=== PATIENT | male | born 1945 | race Two or more races ===

== ENCOUNTER 2024-01-11 15:54 | Inpatient (IN) | payer OTHER ==
[~2024-01-11] VITALS: Ht 180.3 cm; Wt 92.5 kg
[2024-01-11] MEDS ORDERED: NITROGLYCERIN 0.4 MG SL TAB SL PRN (16:30)
[2024-01-11] MEDS ORDERED: MORPHINE SULFATE INJ 2 MG/ml SYRG IV PRN (16:30)
[2024-01-11] MEDS ORDERED: ONDANSETRON HCL 4 MG/2 ML VIAL IV PRN (16:30)
[2024-01-11] MEDS ORDERED: ACETAMINOPHEN 325 MG TAB PO PRN (16:30)
[2024-01-11 17:34] VITALS: BP 153/95; PULSE 91; RESP 18; TEMP 98.1; O2SAT 99
[2024-01-11 17:46] VITALS: BP 153/95; PULSE 91; RESP 16; TEMP 98.1; O2SAT 99
[2024-01-11 18:15] VITALS: PULSE 60; RESP 18; O2SAT 100
[2024-01-11 20:00] VITALS: BP 131/78; PULSE 69; PULSE 92; RESP 20; TEMP 97.8; O2SAT 95
[2024-01-11 21:00] VITALS: BP 131/78; PULSE 69; RESP 20; TEMP 97.8; O2SAT 95
[2024-01-11] MEDS: HYDROcodone-ACET 5/325MG TAB PO PRN (22:51)
[2024-01-11] MEDS: SODIUM CHLORIDE 0.9% 1,000 ML IV SCH (22:52)
[2024-01-12] VITALS (11 sets, daily range): BP systolic 109–152; BP diastolic 72–100; PULSE 20–102; RESP 12–20; TEMP 96.4–98; O2SAT 93–97
[2024-01-12 07:22] LABS: Basophils # (auto) 0 10 ^3/uL (0-0.2); Basophils % (auto) 0.4 % (0.0-2.0); Eosinophils # (auto) 0.2 10 ^3/uL (0-0.8); Hematocrit 42.4 % (41.0-53.0); Lymphocytes # (auto) 1.5 10 ^3/uL (0.4-5.4); Lymphocytes % (auto) 27.7 % (10.0-50.0); Mean Corpuscular Hemoglobin 30.5 pg (28.0-32.0); Mean Corpuscular Volume 92.4 fL (80.0-100.0); Monocytes # (auto) 0.5 10 ^3/uL (0-1.3); Monocytes % (auto) 9.6 % (0.0-12.0); Neutrophils # (auto) 3.1 10 ^3/uL (1.6-8.6); Neutrophils % (auto) 58.3 % (37.0-80.0); Red Blood Cells 4.59 10^6/uL (4.5-5.90); Red Cell Distribution Width 12.8 % (11.8-14.3); White Blood Cell 5.3 10^3/uL (4.4-10.8)
[2024-01-12 07:38] LABS: INR 1.13 (0.9-1.15); Prothrombin Time 11.8 sec (9.3-11.8)
[2024-01-12 07:40] LABS: Albumin 4.2 g/dL (3.2-4.8); Alkaline Phosphatase 51 U/L (46-116); Aspartate Aminotransferase 17 U/L (13-40); Bilirubin, Total 1.1 mg/dL (0.2-1.0); Blood Urea Nitrogen 17 mg/dL (9-23); Chloride 108 mmol/L (98-107); Glucose 87 mg/dL (74-106); Sodium 139 mmol/L (136-145); Total Protein 6.4 g/dL (5.7-8.2)
[2024-01-12 07:41] LABS: Anion Gap 6 (5-15); Calcium 9.1 mg/dL (8.5-10.1); Carbon Dioxide 25 mmol/L (20-30)
[2024-01-12 07:49] LABS: Alanine Aminotransferase < 9 U/L (7-40)
[2024-01-12] MEDS: LIDOCAINE 2%HCL (LOCAL ANESTH.) INJ 20ML MDV ONE ×2 (08:44→14:00)
[2024-01-12] MEDS: IODIXANOL 320MG/ML 100ML BTL IV ONE ×2 (08:44→14:00)
[2024-01-12] MEDS: MIDAZOLAM HCL 2MG/2ML 2ml VIAL (1mg/ml) ONE (09:04)
[2024-01-12] MEDS: VERAPAMIL 2.5MG/ML INJ 2ML VIAL IV ONE ×2 (09:04→14:00)
[2024-01-12] MEDS: fentaNYL CITRATE 100 MCG/2 ML VL ONE (09:04)
[2024-01-12] MEDS: HEPARIN SODIUM (PORCINE) 5000 UNITS/ML 1ML VIAL ONE ×2 (09:05→14:00)
[2024-01-12] MEDS: ANGIOMAX 250 MG VIAL IV ONE ×2 (09:15→14:51)
[2024-01-12] MEDS: SODIUM CHL 0.9% 0 ML ONE (09:15)
[2024-01-12] MEDS ORDERED: ASPirin 81 mg TAB PO SCH (10:00)
[2024-01-12] MEDS: ENOXAPARIN SOD 40 MG/0.4 ML SYRINGE SC SCH (10:00)
[2024-01-12] MEDS: SODIUM CHL 0.9% 50 ML ONE (14:50)
[2024-01-12] MEDS: ASPirin 325 MG TAB ONE (14:51)
[2024-01-12] MEDS: ATROPINE SULF 1 MG/10ml SYR ONE (14:51)
[2024-01-12] MEDS: CLOPIDOGREL BISULFATE 75 MG TAB ONE ×2 (14:51→14:52)
[2024-01-12] MEDS: MORPHINE SULFATE INJ 2 MG/ml SYRG IV PRN (21:20)
[2024-01-12] MEDS: ATORVASTATIN 20 MG TAB PO SCH (21:20)
[2024-01-12] MEDS: CARVEDILOL 3.125 MG TAB PO SCH (21:21)
[2024-01-13 01:00] VITALS: BP 115/89; PULSE 101; RESP 20; TEMP 97.8; O2SAT 96
[2024-01-13 05:00] VITALS: BP 119/66; PULSE 64; RESP 20; TEMP 97.5; O2SAT 96
[2024-01-13 08:00] VITALS: PULSE 72; RESP 18
[2024-01-13 08:35] VITALS: BP 116/72; PULSE 88; RESP 20; TEMP 97.7; O2SAT 94
[2024-01-13] MEDS: ASPirin 81 mg TAB PO SCH (10:24)
[2024-01-13] MEDS: LISINOPRIL 5 MG TAB PO SCH (10:24)
[2024-01-13] MEDS: CLOPIDOGREL BISULFATE 75 MG TAB PO SCH (10:24)
[2024-01-13 12:40] VITALS: BP 125/68; PULSE 64; RESP 20; TEMP 97.9; O2SAT 96
[2024-01-13] MEDS ORDERED: ASPI-325 PO (14:15)
[2024-01-13] MEDS ORDERED: CARV-214 PO (14:15)
[2024-01-13] MEDS ORDERED: LISI-275 PO (14:15)
[2024-01-13] MEDS ORDERED: NITR0.4S29 SL (14:15)
[2024-01-13] MEDS ORDERED: ATOR20TA50 PO (14:15)
[2024-01-13] MEDS ORDERED: CLOP75TA70 PO (14:15)
[2024-01-13 14:37] VITALS: BP 116/72; PULSE 88; TEMP 36.6
== END 2024-01-13 16:07 | disposition home or self-care (01) | DRG 321 ==
LOC: TELE-WESTW 16:28
PROVIDERS: ADMIT Internal Medicine; ATTEND Internal Medicine
PROC: 027034Z Dilation of Coronary Artery, One Artery with Drug-eluting Intraluminal Device, Percutaneous Approach (ICD-10-PCS; principal; 2024-01-12)
PROC: 4A023N7 Measurement of Cardiac Sampling and Pressure, Left Heart, Percutaneous Approach (ICD-10-PCS; 2024-01-12)
PROC: B211YZZ Fluoroscopy of Multiple Coronary Arteries using Other Contrast (ICD-10-PCS; 2024-01-12)
PROC: B215YZZ Fluoroscopy of Left Heart using Other Contrast (ICD-10-PCS; 2024-01-12)
PROC: 4A033BC Measurement of Arterial Pressure, Coronary, Percutaneous Approach (ICD-10-PCS; 2024-01-12)
DX: I25.110 Atherosclerotic heart disease of native coronary artery with unstable angina pectoris (principal); J96.00 Acute respiratory failure, unspecified whether with hypoxia or hypercapnia; Z96.659 Presence of unspecified artificial knee joint
CPT/HCPCS: 36415; 71045; 80053; 84484; 85025; 85610; 85730; 86850; 86900; 86901; 92928; 93005; 93458; 93571; 97163; 99152; G0378; J2250; Q9967

== ENCOUNTER 2024-05-17 06:55 | Day surgery (SDC) | payer OTHER ==
[~2024-05-17] VITALS: Ht 180.3 cm; Wt 86.2 kg
[~2024-05-17 06:55] MED LIST: ASPI-325 PO; ATEN50TA PO; ATOR20TA50 PO; BUDE1AER6 IN; CLOP75TA70 PO; DOXY100C4 PO; NITR0.4S29 SL; TRAZ-228 PO; [UNRECOGNIZED DRUG - CODE] EX
[2024-05-17] MEDS ORDERED: IODIXANOL 320MG/ML 100ML BTL IV ONE ×2 (07:32→09:46)
[2024-05-17] MEDS ORDERED: HEPARIN IN NS 1000Units/500mL 1,500 ML ONE (07:32)
[2024-05-17] MEDS ORDERED: FAMOTIDINE (10MG/ML) 2ML VL IV ONE (08:20)
[2024-05-17] MEDS ORDERED: HEPARIN SODIUM (PORCINE) 5000 UNITS/ML 1ML VIAL ONE (08:51)
[2024-05-17] MEDS ORDERED: MIDAZOLAM HCL 2MG/2ML 2ml VIAL (1mg/ml) ONE (08:51)
[2024-05-17] MEDS ORDERED: ANGIOMAX 250 MG VIAL IV ONE (08:51)
[2024-05-17] MEDS ORDERED: VERAPAMIL 2.5MG/ML INJ 2ML VIAL IV ONE (08:51)
[2024-05-17] MEDS ORDERED: fentaNYL CITRATE 100 MCG/2 ML VL ONE (08:51)
[2024-05-17] MEDS ORDERED: SODIUM CHL 0.9% 50 ML ONE (08:52)
[2024-05-17] MEDS ORDERED: LIDOCAINE 2%HCL (LOCAL ANESTH.) INJ 20ML MDV ONE (09:15)
[2024-05-17] MEDS ORDERED: CLOPIDOGREL BISULFATE 75 MG TAB ONE (09:54)
[2024-05-17 10:03] VITALS: BP 118/80; PULSE 55; RESP 15; O2SAT 93
[2024-05-17 10:19] VITALS: BP 137/77; PULSE 55; RESP 15; O2SAT 96
[2024-05-17 10:48] VITALS: BP 121/62; PULSE 54; RESP 13; O2SAT 96
[2024-05-17 11:19] VITALS: BP 96/66; PULSE 58; RESP 13; O2SAT 95
[2024-05-17 11:45] VITALS: PULSE 58; RESP 24; O2SAT 95
== END 2024-05-17 12:02 | disposition home or self-care (01) ==
LOC: CATH 06:55
PROVIDERS: ATTEND Internal Medicine
DX: I25.110 Atherosclerotic heart disease of native coronary artery with unstable angina pectoris (principal); Z79.82 Long term (current) use of aspirin; Z79.01 Long term (current) use of anticoagulants; Z82.49 Family history of ischemic heart disease and other diseases of the circulatory system; Z98.890 Other specified postprocedural states; Z96.659 Presence of unspecified artificial knee joint
CPT/HCPCS: 93458; C1725; C1769; C1874; C1887; C1894; C9600; J0583; J1644; J2250; J3010; J7030; Q9967; 99152; 99153; J3490

== ENCOUNTER 2025-05-02 07:34 | Day surgery (SDC) | payer OTHER ==
[~2025-05-02] VITALS: Ht 180.3 cm; Wt 88.5 kg
[2025-05-02] VITALS (8 sets, daily range): BP systolic 115–132; BP diastolic 67–96; PULSE 59–87; RESP 16–20; TEMP 97.7; O2SAT 92–97
[~2025-05-02 07:34] MED LIST changes: +CLOPIDOGREL BISULFATE 75 MG TAB PO SCH; +FLUT0.05 NAS; +FLUTICASONE PROP NASAL SPR 0.05 % (50MCG) 16GM EACHNOSTRI SCH; +LISI-275 PO; +LISINOPRIL 5 MG TAB PO SCH
[2025-05-02] MEDS: fentaNYL CITRATE 100 MCG/2 ML VL ONE (11:49)
[2025-05-02] MEDS: HEPARIN SODIUM (PORCINE) 5000 UNITS/ML 1ML VIAL ONE (11:49)
[2025-05-02] MEDS: VERAPAMIL 2.5MG/ML INJ 2ML VIAL IV ONE (11:49)
[2025-05-02] MEDS: ANGIOMAX 250 MG VIAL IV ONE (11:49)
[2025-05-02] MEDS: MIDAZOLAM HCL 2MG/2ML 2ml VIAL (1mg/ml) ONE (11:49)
[2025-05-02] MEDS: IODIXANOL 320MG/ML 100ML BTL IV ONE ×2 (11:50→12:01)
[2025-05-02] MEDS: SODIUM CHL 0.9% 0 ML ONE (11:50)
[2025-05-02] MEDS: LIDOCAINE 2%HCL (LOCAL ANESTH.) INJ 20ML MDV ONE (11:50)
--- NOTE | 2025-05-02 12:32 | DVHOP2 ---
Operative Report - 2 Report Details Date: 05/02/25 Preop Diagnosis: CAD Postop Diagnosis: Mild cardiomyopathy. Normal coronary arteries. Surgeon: Hilary Laughlin MD Anesthesiologist: Conscious sedation Anesthesia: Mac, Local Consent: The patient was informed of the risks and benefits of the procedure. These include but are not limited to complications of anesthesia, postoperative infection, incomplete relief of symptoms, recurrence of symptoms, damage to blood vessels, nerves and tendons, deep venous thrombosis, pulmonary embolism and possible need for repeat surgery in the future. Complications: No complications Findings: No significant CAD. Indications for Surgery: Chest pain Name of Procedure Performed Left heart catheterization. Bilateral cine coronary angiography. Left ventriculography. Procedure Details Procedure Details: Prior local anesthesia with 2% lidocaine to the right wrist and full informed consent obtained the patient was prepped and draped in usual fashion followed by placement of a six [place] sheath into the radial artery through which six [place] Naresh catheter was used for ventriculography and RCA evaluation. A it JL three five diagnostic catheter was used to evaluate the left main. Hemodynamics: Aortic blood pressure was 110/70. End-diastolic pressure was 16. There was no gradient across the aortic valve on pullback Coronary anatomy: The RCA is large and dominant. It is normal. PDA and posterolateral branches are normal. Left main is large and normal. Left anterior descending is large with two diagonals free of significant disease. Circumflex is large. Subsequent to the origin of the large marginal branch there is a discrete 40-50% stenosis of the ostial circumflex. Two marginal branches are free of significant disease. Ventriculography in the MORALES projection shows an EF of 45-50% with mild global h ypokinesis. Impression: Normal ventricular end-diastolic pressure at rest. Mild decreased ejection fraction. No significant coronary artery disease. Condition Good Disposition Home Date of Service: May 02, 2025 Billing Provider: HILARY LAUGHLIN Sr., MD Cardiology Common Codes: 79948-ZOXPBDM INP/OBS CARE (High) Cardiology Secondary Visit Cod: [id number] CARE PLAN 30 MINUTES Cardiology Procedure Codes: 72904-VHDZ HEART CATH W/INTRA INJ HILARY LAUGHLIN Sr., MD May 02, 2025 12:32
== END 2025-05-02 15:21 | disposition home or self-care (01) ==
LOC: CATH 07:34
PROVIDERS: ATTEND Internal Medicine
DX: I25.10 Atherosclerotic heart disease of native coronary artery without angina pectoris (principal); I42.9 Cardiomyopathy, unspecified; R06.02 Shortness of breath; E78.2 Mixed hyperlipidemia; I10 Essential (primary) hypertension; J44.9 Chronic obstructive pulmonary disease, unspecified; G47.00 Insomnia, unspecified; E11.51 Type 2 diabetes mellitus with diabetic peripheral angiopathy without gangrene; R07.89 Other chest pain; E11.21 Type 2 diabetes mellitus with diabetic nephropathy; Z87.891 Personal history of nicotine dependence; Z79.899 Other long term (current) drug therapy; Z98.890 Other specified postprocedural states; Z79.84 Long term (current) use of oral hypoglycemic drugs
CPT/HCPCS: 93458; C1769; C1887; C1894; J1644; J2250; J3010; J7030; Q9967; 99152